=== PATIENT | female | born 1990 | race Asian ===

== ENCOUNTER 2018-06-02 11:11 | Emergency (ER) | payer OTHER ==
[~2018-06-02] VITALS: Ht 154.9 cm; Wt 55.3 kg
--- NOTE | 2018-06-02 11:12 | NUR ---
PATIENT AMBULATE TO BED 1 AT THIS TIME.
[2018-06-02 11:25] VITALS: BP 117/48
--- NOTE | 2018-06-02 11:30 | NUR ---
C/O N/V/WEAKNESS X 4 DAYS. DENIES FEVER/PAIN. TAKING ODT ZOFRAN AT HOME WITH NO RELIEF. PT STATES SHE CANT KEEP ANY FOOD DOWN AT HOME. PT HAS BRADYCARDIA AT 45-55 BPM, ERMD AWARE. SKIN IS PINK/WARM/DRY; AAOX4 WITH EVEN AND STEADY GAIT; LUNGS CLEAR BL; PATIENT POSITIONED FOR COMFORT; HOB ELEVATED; BEDRAILS UP X1; BED DOWN. ER MD MADE AWARE OF PT STATUS.
[2018-06-02] MEDS ORDERED: NACL 0.9% 1,000 ML IV ONE ×2 (11:35→12:45)
[2018-06-02] MEDS ORDERED: ONDANSETRON 4 MG ODT PO ONE (11:35)
--- NOTE | 2018-06-02 11:35 | NUR ---
ERMD AT BEDSIDE
[2018-06-02 11:54] LABS: APPEARANCE,URINE CLEAR (CLEAR); BILIRUBIN,URINE NEGATIVE (NEGATIVE); BLOOD, URINE NEGATIVE (NEGATIVE); COLOR,URINE YELLOW (YELLOW); LEUKOCYTE ESTERASE ,URINE NEGATIVE (NEGATIVE); NITRITE, URINE NEGATIVE (NEGATIVE); PH,URINE 7.5 (5.0-9.0); UGLUCOSE NEGATIVE (NEGATIVE)
[2018-06-02 12:09] LABS: ANION GAP 10.5 (8-16); CARBON DIOXIDE 28.3 mmol/L (21-32); CREATININE 0.7 mg/dL (0.6-1.3); POTASSIUM 3.8 mmol/L (3.5-5.1)
[2018-06-02] MEDS ORDERED: ONDANSETRON 4 MG/2 ML VIAL IVP ONE (12:10)
[2018-06-02 12:13] LABS: BASOPHILS % (AUTO) 0.3 % (0.0-2.0); EOSINOPHILS % (AUTO) 0.7 % (0.0-4.0); HEMATOCRIT 38.5 % (36-48); HEMOGLOBIN 12.8 g/dL (12.0-16.0); LYMPHOCYTES # (AUTO) 1.2 K/uL (2.5-16.5); LYMPHOCYTES % (AUTO) 21.5 % (20.5-51.1); MEAN CORPUSCULAR HEMOGLOBIN 31 pg (27-31); MEAN CORPUSCULAR HGB CONC 33 g/dL (33-37); MEAN CORPUSCULAR VOLUME 93.7 fL (80-94); MONOCYTES # (AUTO) 0.3 K/uL (0.8-1.0); MONOCYTES % (AUTO) 5.6 % (1.7-9.3); NEUTROPHILS # (AUTO) 3.9 K/uL (1.8-7.7); NEUTROPHILS % (AUTO) 71.9 % (42.2-75.2); PLATELET COUNT (AUTO) 266 K/uL (140-450); RED BLOOD CELL COUNT(AUTO) 4.11 MIL/uL (4.20-5.40); WHITE BLOOD COUNT (AUTO) 5.4 K/uL (4.8-10.8)
[2018-06-02 12:15] LABS: ALBUMIN 3.3 g/dL (3.4-5.0); TOTAL BILIRUBIN 0.3 mg/dL (0.0-1.0)
[2018-06-02 12:25] LABS: RBC,URINE NONE SEEN /HPF (0-5); WBC,URINE 0 /HPF (0-5)
--- NOTE | 2018-06-02 13:00 | NUR ---
PT RESTING IN BED, NO NEW NEEDS AT THIS TIME
[2018-06-02] MEDS ORDERED: MORPHINE SULFATE 4 MG/ML SYR IVP ONE (13:25)
[2018-06-02] MEDS ORDERED: KETOROLAC 15 MG/ML VIAL IVP ONE (13:55)
[2018-06-02] MEDS ORDERED: METOCLOPRAMIDE 10 MG/2 ML INJ VIAL IVP ONE (14:30)
--- NOTE | 2018-06-02 14:30 | NUR ---
PT RESTING IN BED, NO NEW NEEDS AT THIS TIME
--- NOTE | 2018-06-02 15:30 | NUR ---
ERMD AT BEDSIDE
[2018-06-02 15:57] VITALS: BP 112/58
--- NOTE | 2018-06-02 15:57 | NUR ---
Patient discharged with v/s stable. Written and verbal after care instructions given and explained. Patient alert, oriented and verbalized understanding of instructions. Ambulatory with steady gait. All questions addressed prior to discharge. ID band removed. Patient advised to follow up with PMD. Rx of REGLAN given. Patient educated on indication of medication including possible reaction and side effects. Opportunity to ask questions provided and answered.
== END 2018-06-02 15:57 | disposition home or self-care (01) ==
LOC: MED 11:11
DX: R11.2 Nausea with vomiting, unspecified (principal); R42 Dizziness and giddiness; M54.2 Cervicalgia; Z91.013 Allergy to seafood
CPT/HCPCS: 36415; 80053; 81001; 81025; 85025; 87804; 93005; 96361; 96374; 96375; 99284; J1885; J2405; J2765; J7030; J2270; Q0162